=== PATIENT | male | born 1960 | race Caucasian/White ===

== ENCOUNTER 2017-03-20 08:57 | Emergency (ER) | payer MEDICARE ==
[2017-03-20 09:04] VITALS: BP 122/74
--- NOTE | 2017-03-20 09:40 | XRay Report ---
LEFT WRIST, 4 views: HISTORY: Left wrist pain after fall. No comparison. There is dorsal soft tissue swelling. On the lateral view, a free bony fragment is suggested. This may represent a pisiform fracture. The remaining carpal bones are grossly intact. No dislocation or ligamentous injury appreciated. The distal radius and ulna are intact. Normal bone mineralization. IMPRESSION: Possible fusiform fracture. Please correlate with the patient.
--- NOTE | 2017-03-20 12:14 | Emergency Department Report ---
ED Upper Extremity Inj HPI - General Chief Complaint: Extremity Injury, Upper Stated Complaint: LEFT HAND WRIST PAIN Time Seen by Provider: 03/20/17 11:40 Source: patient Mode of arrival: Ambulatory Limitations: No Limitations - History of Present Illness Initial Comments: This is a 56-year-old male nontoxic, well nourished in appearance, no acute signs of distress presents to the ED complaining of left wrist pain status post fall has occurred yesterday around 8 PM. Patient that he was walking down the steps at his last that he tripped and landed on his left wrist region. Patient denies any numbness, detailing, fever, chills, nausea, vomiting, chest pain or shortness of breath. Patient denies any head trauma or any other cavity trauma. Patient describes pain in his wrist region with level of 8 out of 10 describes aching. Patient is up-to-date tetanus shot as per patient. Allergies to Cipro. Past medical history includes diabetes. MD Complaint: Injury to:: wrist -: Gradual, days(s) (1) Other Extremity Injury: Wrist: Left Other Injuries: none Place: home Severity scale (0 -10): 8 Improves With: none Worsens With: movement of extremity Context: fall Associated Symptoms: denies other symptoms. denies: weakness, numbness, neck pain, suspects foreign body, nausea/vomiting, heard/felt popping sensat - Related Data Previous Rx's Medication Instructions Recorded Last Taken Type traMADol [Ultram] 50 mg PO Q6HR PRN #15 tablet 03/20/17 Unknown Rx Allergies Allergy/AdvReac Type Severity Reaction Status Date / Time ciprofloxacin [From Cipro] AdvReac Swelling Verified 03/20/17 09:05 ciprofloxacin HCl AdvReac Swelling Verified 03/20/17 09:05 [From Cipro] ED Review of Systems ROS: Stated complaint: LEFT HAND WRIST PAIN Other details as noted in HPI Constitutional: denies: chills, fever Eyes: denies: eye pain, eye discharge, vision change ENT: denies: ear pain, throat pain Respiratory: denies: cough, shortness of breath, wheezing Cardiovascular: denies: chest pain, palpitations Endocrine: no symptoms reported Gastrointestinal: denies: abdominal pain, nausea, diarrhea Genitourinary: denies: urgency, dysuria Musculoskeletal: denies: back pain, joint swelling, arthralgia Skin: denies: rash, lesions Neurological: denies: headache, weakness, paresthesias Psychiatric: denies: anxiety, depression Hematological/Lymphatic: denies: easy bleeding, easy bruising ED Past Medical Hx - Past Medical History Previous Medical History?: Yes Hx Diabetes: Yes Additional medical history: lumbar - Surgical History Past Surgical History?: No - Social History Smoking Status: Never Smoker Substance Use Type: None - Medications Home Medications: Home Medications Medication Instructions Recorded Confirmed Last Taken Type traMADol [Ultram] 50 mg PO Q6HR PRN #15 tablet 03/20/17 Unknown Rx ED Physical Exam - General Limitations: No Limitations General appearance: alert, in no apparent distress - Head Head exam: Present: atraumatic, normocephalic, normal inspection - Eye Eye exam: Present: normal appearance, PERRL, EOMI. Absent: scleral icterus, conjunctival injection, nystagmus, periorbital swelling, periorbital tenderness Pupils: Present: normal accommodation - ENT ENT exam: Present: normal exam, normal orophraynx, mucous membranes moist, TM's normal bilaterally, normal external ear exam - Neck Neck exam: Present: normal inspection, full ROM. Absent: tenderness, meningismus, lymphadenopathy, thyromegaly - Respiratory Respiratory exam: Present: normal lung sounds bilaterally. Absent: respiratory distress, wheezes, rales, rhonchi, stridor, chest wall tenderness, accessory muscle use, decreased breath sounds, prolonged expiratory - Cardiovascular Cardiovascular Exam: Present: regular rate, normal rhythm, normal heart sounds. Absent: bradycardia, tachycardia, irregular rhythm, systolic murmur, diastolic murmur, rubs, gallop - GI/Abdominal GI/Abdominal exam: Present: soft, normal bowel sounds. Absent: distended, tenderness, guarding, rebound, rigid, diminished bowel sounds - Rectal Rectal exam: Present: deferred - Extremities Exam Extremities exam: Present: normal inspection, full ROM, tenderness, normal capillary refill. Absent: pedal edema, joint swelling, calf tenderness - Expanded Upper Extremity Exam Left General: Present: normal inspection Shoulder Exam: Present: normal inspection, full ROM Upper Arm exam: Present: normal inspection, full ROM Elbow exam: Present: normal inspection, full ROM Forearm Wrist exam: Present: normal inspection, full ROM, tenderness (lateral wrist region). Absent: swelling, abrasion, laceration, ecchymosis, deformity, crepidus, dislocation, erythema, tenderness over anatomical snuff box, pain with axial thumb loading Hand Wrist exam: Present: normal inspection, full ROM, tenderness (lateral wrist region). Absent: swelling, abrasion, laceration, ecchymosis, deformity, crepidus, dislocation, erythema, amputation, nail avulsion, subungual hematoma Neuro motor exam: Present: wrist extension intact, thumb opposition intact, thumb IP flexion intact, thumb adduction intact, fingers 2-5 abduction intact Neurosensory exam: Present: 2-point discrimination, radial nerve intact, ulnar nerve intact, median nerve intact Vascular: Present: vascular compromise, normal capillary refill, radial pulse, brachial pulse, ulnar pulse - Back Exam Back exam: Present: normal inspection, full ROM. Absent: tenderness, CVA tenderness (R), CVA tenderness (L), muscle spasm, paraspinal tenderness, vertebral tenderness, rash noted - Neurological Exam Neurological exam: Present: alert, oriented X3, CN II-XII intact, normal gait, reflexes normal - Psychiatric Psychiatric exam: Present: normal affect, normal mood - Skin Skin exam: Present: warm, dry, intact, normal color. Absent: rash ED Course Vital Signs 03/20/17 09:02 Temperature 98.2 F Pulse Rate 81 Respiratory 16 Rate Blood Pressure 122/74 O2 Sat by Pulse 99 Oximetry - Reevaluation(s) Reevaluation #1: 03/20/17 12:16 Patient is speaking in full sentences with no signs of distress noted. Reevaluation #2: 03/20/17 12:16 Post splint assessment; patient denies splint being too tight. Neurovascular intact. Capillary refill less than 2 seconds. She is able to move digits freely. No numbness or tingling as per patient. ED Medical Decision Making - Radiology Data Radiology results: report reviewed interpreted by me: Dr. Hogan Possible Pisiform fracture - Medical Decision Making 56-year-old male that presents with left wrist possible pisiform fracture. Patient was in the myself. Patient is stable. Neurovascular intact. Patient received a short arm splint placed in 30 degrees of flexion with slight ulnar deviation. Post splint assessment is neurovascular intact. Patient was instructed to follow-up with the orthopedic doctor in 3-5 days or symptoms such as numbness, tingling, swelling, or any abnormal symptoms return to emergency as soon as possible. Patient also instructed to rest, elevate extremity. Patient received Ultram at the time of discharge and was instructed not to operate any machinery while taking Ultram due to sedation. At time time of discharge, the patient does not seem toxic or ill in appearance. No acute signs of distress noted. Patient agrees to discharge treatment plan of care. No further questions noted by the patient. Critical care attestation.: If time is entered above; I have spent that time in minutes in the direct care of this critically ill patient, excluding procedure time. ED Disposition Clinical Impression: Fx pisiform-closed Qualifiers: Encounter type: initial encounter Fracture alignment: nondisplaced Laterality: left Qualified Code(s): S62.165A - Nondisplaced fracture of pisiform, left wrist , initial encounter for closed fracture Disposition: TO HOME OR SELFCARE Is pt being admited?: No Does the pt Need Aspirin: No Condition: Stable Instructions: Wrist Fracture in Adults (ED), Splint Care (ED), Tramadol (By mouth) Additional Instructions: Follow-up with the orthopedic doctor in 3-5 days or symptoms such as numbness, tingling, swelling, or any abnormal symptoms return to emergency as soon as possible. Rest and elevate extremity. Do not operate any machinery while taking Ultram due to sedation. Prescriptions: traMADol [Ultram] 50 mg PO Q6HR PRN #15 tablet PRN Reason: Pain Referrals: CORA WAGNER MD [Primary Care Provider] - 3-5 Days CONNIE GRAYSON MD [Staff Physician] - 3-5 Days [facility] [Outside] - 3-5 Days [facility] [Outside] - 3-5 Days Forms: Work/School Release Form(ED)
== END 2017-03-20 12:28 | disposition home or self-care (01) ==
LOC: ED 08:57
DX: S62.165A Nondisplaced fracture of pisiform, left wrist, initial encounter for closed fracture (principal); E11.9 Type 2 diabetes mellitus without complications; Z88.1 Allergy status to other antibiotic agents; W18.39XA Other fall on same level, initial encounter; Y93.89 Activity, other specified; Y99.8 Other external cause status; Y92.098 Other place in other non-institutional residence as the place of occurrence of the external cause